=== PATIENT | female | born 1980 | race Caucasian/White ===

== ENCOUNTER 2025-06-28 15:00 | Outpatient (RCR) | payer SELFPAY ==
--- NOTE | 2025-04-26 11:03 | HP.OTEVAL_ITS ---
Patient's Visit Information Visit Information Visit Information: SAVANNAH OCAMPO is a 44 year old F, referred to Occupational Therapy by Self Referred, with a diagnosis of Dislocation of L RF, Dorsal and lateral dislocation PIP L RF. Date of Evaluation: 04/26/25 Occupational Therapist: Esther Anderson Subjective Subjective: This 44 year old female arrives with dx of dislocation of L RF which occurred 01/19/25 after a fall while on tredmill. Pt went to see PT after injury however suggested coming to see OT. Per ortho pt may have had an avulsion fracture at L RF at PIP joint however no formal dx provided to pt. Pt is no longer having pain unless stressing finger out with activity. Pt PIP is swollen. Pt is R hand dominant. 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 Pain L RF: Current Pain Intensity: 2 Pain Intensity Range: 2 Objective Objective/Observation: pt arrives demonstrating flexion at rest of L RF with swelling noted at PIP joint. ROM PIP: L RF -40/80 R RF 0/90 DIP: L RF 0/25 R RF 0/65 ROM Comments: able to make composite fist however not tight with decreased strength all other ROM WFL Strength Switchboard Operator: R 80# L 20# Lateral Pinch: R 10# L 8# Tripod Pinch: R 10# L 5# Edema Proximal Phalanx: L 7 cm R 6 cm Sensation Sensation Comments: within normal limits Quick DASH-Disab of Arm,Shoulder& Hand Quick DASH Score: 18.1800 Goals Goal:ROM equal to unaffected hand: Yes Goal:Switchboard Operator/Pinch strength at least 75% of unaffected hand: Yes Goal:No pain with affected hand use: Yes Goal:PIP Circumferences equal to unaffected hand: Yes Goal:Full use of affected hand in daily activities including work: Yes Comment: quick dash Other Goal: pt will improve quick dash score by 5 points or more (18.18) in order to return to functional use of L hand. Rehabilitation General Assessment: This 44 year old female arrives with dx of dislocation of L RF lateral and dorsal. Pt is now 13 weeks and 6 days from DOI. Pt presents with limitations in L RF extension at PIP joint as well as flexion at DIP and PIP joint. 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 Pt with swelling of L RF impacting ability to perform day to day tasks. Pt would benefit from OT services 1x a week for 4 weeks in order to improve ROM and strength and decrease swelling. Rehabilitation Potential: Good Anticipated Interventions Anticipated Interventions: Strengthening, Edema Control, Modalities, Orthoses, Fine Motor Coord/Oh, Education re Diagnosis and Home Program Visit Plan Frequency: 1x/Week Duration: 4 Weeks General Plan: L RF blocking to DIP and PIP L RF reverse blocking to PIP joint nighttime orthosis for extension TEXT: Thank you for the opportunity to evaluate your patient. For Medicare and Medicare HMO plans, please review the plan of care and approve it. It will need to be FAXED BACK to us at [phone] for Medicare purposes. Please let me know if there are questions or concerns regarding this plan of care. Physician Signature: Date:
--- NOTE | 2025-09-19 14:40 | HP.OT.NRP ---
Patient Information Patient Information: SAVANNAH OCAMPO was seen in my office for initial evaluation on 04/26/25. The following Plan of Care was established for this patient: POC Established Initial Frequency: 1x/Week Initial Duration: 4 Weeks Anticipated Interventions Anticipated Interventions: Strengthening, Edema Control, Modalities, Orthoses, Fine Motor Coord/Oh, Education re Diagnosis and Home Program Last Seen Last Seen: This patient was last seen in our office 06/28/25. Pertinent comments regarding their Occupational therapy will appear below: This 45 year old female seen by OT with dx of L RF dislocation. Pt seen and progressed in ROM and HEP. pt to be discharged from OT caseload due to lapse in time of services. At this point I will be discontinuing this patient from occupational therapy. I would be happy to see this patient again in the future if found appropriate by the physician. Thank you! Esther Anderson
== END 2025-06-28 19:00 | disposition home or self-care (01) ==
LOC: OT 15:00
PROVIDERS: PCP Nurse Practitioner Family
DX: S63.255D Unspecified dislocation of left ring finger, subsequent encounter (principal)
CPT/HCPCS: 97140; 97165; 97530; 97760